=== PATIENT | female | born 1980 | race African-American/Black ===

== ENCOUNTER 2018-09-30 10:44 | Emergency (ER) | payer OTHER ==
[~2018-09-30] VITALS: Ht 162.6 cm; Wt 68.0 kg
--- NOTE | 2018-09-30 10:53 | NUR ---
38/F C/O LOWER ABD PAIN & VAGINA PAIN& X 2 DAY. BLEEDING PER VAGINA X LAST NIGHT. LMP 08/29/18. PATIENT STATES PAIN OF 10/10 AT THIS TIME.PATIENT POSITIONED FOR COMFORT; HOB ELEVATED; BEDRAILS UP X2; BED DOWN. ER MD MADE AWARE OF PT STATUS.
[2018-09-30 10:59] VITALS: BP 118/63
[2018-09-30] MEDS ORDERED: MORPHINE SULFATE 4 MG/ML SYR IVP ONE ×2 (11:20→14:00)
[2018-09-30 11:30] LABS: BASOPHILS % (AUTO) 0.5 % (0.0-2.0); EOSINOPHILS # (AUTO) 0.1 K/uL (0-0.4); EOSINOPHILS % (AUTO) 0.8 % (0.0-4.0); HEMATOCRIT 35.7 % (36-48); LYMPHOCYTES # (AUTO) 2.2 K/uL (2.5-16.5); LYMPHOCYTES % (AUTO) 29.1 % (20.5-51.1); MEAN CORPUSCULAR HEMOGLOBIN 32 pg (27-31); MEAN CORPUSCULAR HGB CONC 34 g/dL (33-37); MEAN CORPUSCULAR VOLUME 96.8 fL (80-94); MONOCYTES # (AUTO) 0.8 K/uL (0.8-1.0); MONOCYTES % (AUTO) 10.2 % (1.7-9.3); NEUTROPHILS # (AUTO) 4.4 K/uL (1.8-7.7); NEUTROPHILS % (AUTO) 59.4 % (42.2-75.2); PLATELET COUNT (AUTO) 203 K/uL (140-450); RED BLOOD CELL COUNT(AUTO) 3.69 MIL/uL (4.20-5.40); RED CELL DISTRIBUTION WIDTH 12.1 % (11.6-13.7); WHITE BLOOD COUNT (AUTO) 7.5 K/uL (4.8-10.8)
[2018-09-30] MEDS ORDERED: MORPHINE SULFATE 4 MG/ML SYR IM ONE (14:00)
[2018-09-30 14:39] VITALS: BP 110/61
--- NOTE | 2018-09-30 14:39 | NUR ---
Patient discharged with v/s stable. Written and verbal after care instructions given and explained. Patient alert, oriented and verbalized understanding of instructions. Ambulatory with steady gait. All questions addressed prior to discharge. ID band removed. Patient advised to follow up with PMD. Rx of MOTRIN & NORCO given. Patient educated on indication of medication including possible reaction and side effects. Opportunity to ask questions provided and answered.
== END 2018-09-30 14:39 | disposition home or self-care (01) ==
LOC: MED 10:44
DX: O03.9 Complete or unspecified spontaneous abortion without complication (principal)
CPT/HCPCS: 36415; 84702; 85025; 96374; 96376; 99283; J2270

== ENCOUNTER 2018-10-17 02:38 | Emergency (ER) | payer OTHER ==
[~2018-10-17] VITALS: Ht 162.6 cm; Wt 81.8 kg
[2018-10-17 02:40] VITALS: BP 120/62
--- NOTE | 2018-10-17 02:53 | NUR ---
PT AMBULATED TO BED #2
--- NOTE | 2018-10-17 02:53 | NUR ---
PT AMBULATED TO THE RESTROOM. PT TOLERATED WELL.
--- NOTE | 2018-10-17 02:54 | NUR ---
Patient ambulated to bed 4 with family. RN evaluating patient at bedside.
--- NOTE | 2018-10-17 02:54 | NUR ---
GAVE REPORT TO CORNELIUS ESPOSITO. PT VSS
--- NOTE | 2018-10-17 03:06 | NUR ---
PT BIB FAMILY C/O PELVIC PAIN POST MISCARRIAGE . PT REPORTS 10/10 SHARP PAIN IN LOWER ABD/PELVIC REGION THAT INCREASES WITH URINATION, BM, TOUCH, OR MOVEMENT. PT STATES THAT NORCO SHE HAD HELPED WITH PAIN, BUT HAS RAN OUT. LMP WAS BEGINNING OF AUG. DENIES VAG BLEEDING. PT DENIES N/V OR FEVER. PT HAD A RENAL U/S AND IMAGES OF PELVIC REGION TODAY. PT . VSS. ER TO SEE PT. MEDHX:KIDNEY STONES, ECTOPIC
--- NOTE | 2018-10-17 03:17 | NUR ---
Dr. Baez evaluating patient at bedside.
[2018-10-17] MEDS ORDERED: ONDANSETRON 4 MG/2 ML VIAL IVP ONE (03:25)
[2018-10-17] MEDS ORDERED: MORPHINE SULFATE 4 MG/ML SYR IVP ONE (03:25)
[2018-10-17 03:44] LABS: BASOPHILS % (AUTO) 0.2 % (0.0-2.0); EOSINOPHILS % (AUTO) 0.2 % (0.0-4.0); HEMOGLOBIN 10.8 g/dL (12.0-16.0); LYMPHOCYTES % (AUTO) 9.4 % (20.5-51.1); MEAN CORPUSCULAR HEMOGLOBIN 32 pg (27-31); MEAN CORPUSCULAR HGB CONC 33 g/dL (33-37); MEAN CORPUSCULAR VOLUME 97.5 fL (80-94); MONOCYTES # (AUTO) 0.8 K/uL (0.8-1.0); MONOCYTES % (AUTO) 7.6 % (1.7-9.3); NEUTROPHILS # (AUTO) 8.5 K/uL (1.8-7.7); PLATELET COUNT (AUTO) 310 K/uL (140-450); RED BLOOD CELL COUNT(AUTO) 3.38 MIL/uL (4.20-5.40); RED CELL DISTRIBUTION WIDTH 12.6 % (11.6-13.7); WHITE BLOOD COUNT (AUTO) 10.3 K/uL (4.8-10.8)
[2018-10-17 03:53] LABS: NEUTROPHILS % (AUTO) 82.6 % (42.2-75.2)
[2018-10-17 03:56] LABS: ANION GAP 12.3 (8-16); CARBON DIOXIDE 27.5 mmol/L (21-32); CREATININE 0.7 mg/dL (0.6-1.3); POTASSIUM 3.8 mmol/L (3.5-5.1)
--- NOTE | 2018-10-17 04:00 | NUR ---
PT RETURNED FROM CT AT THIS TIME.
[2018-10-17 04:02] LABS: ALBUMIN 4.1 g/dL (3.4-5.0); TOTAL BILIRUBIN 0.8 mg/dL (0.0-1.0)
--- NOTE | 2018-10-17 04:37 | NUR ---
PT RESTING IN BED, DAUGHTER AT BEDSIDE. PT REPORTS PAIN AT 3/10 AT THIS TIME. VSS. US [employer] COOK ON HER WAY FROM [place] AT THIS TIME. WILL CONTINUE TO MONITOR.
--- NOTE | 2018-10-17 05:08 | NUR ---
US tech at bedside for exam.
[2018-10-17 05:28] LABS: APPEARANCE,URINE HAZY (CLEAR); BILIRUBIN,URINE 1+ (NEGATIVE); BLOOD, URINE NEGATIVE (NEGATIVE); COLOR,URINE YELLOW (YELLOW); LEUKOCYTE ESTERASE ,URINE NEGATIVE (NEGATIVE); NITRITE, URINE NEGATIVE (NEGATIVE); UGLUCOSE NEGATIVE (NEGATIVE)
[2018-10-17 05:43] LABS: RBC,URINE 0-5 (RARE) /HPF (0-5)
[2018-10-17 06:38] VITALS: BP 97/53
--- NOTE | 2018-10-17 06:38 | NUR ---
Patient discharged with v/s stable. Written and verbal after care instructions given and explained. Patient alert, oriented and verbalized understanding of instructions. Ambulatory with steady gait. All questions addressed prior to discharge. ID band removed. Patient advised to follow up with PMD. Rx of motrin and norco given. Patient educated on indication of medication including possible reaction and side effects. Opportunity to ask questions provided and answered.
== END 2018-10-17 06:38 | disposition home or self-care (01) ==
LOC: MED 02:38
DX: N83.209 Unspecified ovarian cyst, unspecified side (principal); Z87.442 Personal history of urinary calculi
CPT/HCPCS: 36415; 74176; 76856; 80053; 81001; 81025; 83690; 84702; 85025; 87086; 96374; 96375; 99284; J2270; J2405; Q0092

== ENCOUNTER 2019-07-12 12:47 | Emergency (ER) | payer SELFPAY ==
[~2019-07-12] VITALS: Ht 162.6 cm; Wt 83.9 kg
[2019-07-12 13:15] VITALS: BP 110/64
--- NOTE | 2019-07-12 13:21 | NUR ---
PT BACK TO LOBBY TO WAIT FOR BED IN STABLE CONDITION.
--- NOTE | 2019-07-12 13:25 | NUR ---
PT ARRIVED TO ED C/O UTI SX AND COLD SX X 4 DAYS. NO PAIN. DENIES ANY FEVER,N,V,D, OR BLOOD IN URINE. PT STATES SHE HAS DYSURIA AND A BURNING SENSATION. LUNG SOUNDS CLEAR ALL THROUGHOUT. CONGESTED NOSE, AND PRODUCTIVE COUGH. VSS. NO RESP DSITRESS NOTED. NKA. NO PMH.
[2019-07-12 15:56] VITALS: BP 110/64
--- NOTE | 2019-07-12 15:56 | NUR ---
Patient discharged with v/s stable. Written and verbal after care instructions given and explained. Patient alert, oriented and verbalized understanding of instructions. Ambulatory with steady gait. All questions addressed prior to discharge. ID band removed. Patient advised to follow up with PMD. Rx of ROBITUSSIN, KEFLEX, IBUPROFEN given. Patient educated on indication of medication including possible reaction and side effects. Opportunity to ask questions provided and answered.
== END 2019-07-12 15:56 | disposition home or self-care (01) ==
LOC: MED 12:47
DX: J06.9 Acute upper respiratory infection, unspecified (principal); N39.0 Urinary tract infection, site not specified
CPT/HCPCS: 81002; 81025; 87086; 87186; 99283

== ENCOUNTER 2023-02-05 08:35 | Emergency (ER) | payer MEDICAID ==
[~2023-02-05] VITALS: Ht 162.6 cm; Wt 84.4 kg
[2023-02-05 08:38] VITALS: BP 120/52
--- NOTE | 2023-02-05 08:41 | NUR ---
PT AMBULATED TO BED 11
--- NOTE | 2023-02-05 08:59 | NUR ---
MD AT BEDSIDE ASSESSING PT
[2023-02-05] MEDS ORDERED: IBUPROFEN 400 MG TAB PO ONE (09:05)
--- NOTE | 2023-02-05 09:13 | NUR ---
X-Ray at bedside.
[2023-02-05] MEDS ORDERED: NAPR-1704 PO (09:37)
--- NOTE | 2023-02-05 09:39 | NUR ---
sling applied to L arm. + cms
--- NOTE | 2023-02-05 09:40 | NUR ---
MEDICATION REEVALUATION PT STATED THAT PAIN WAS NOW 3/10
[2023-02-05 09:46] VITALS: BP 121/53
== END 2023-02-05 09:46 | disposition home or self-care (01) ==
LOC: MED 08:35
DX: M25.522 Pain in left elbow (principal); F12.90 Cannabis use, unspecified, uncomplicated; Z79.899 Other long term (current) drug therapy
CPT/HCPCS: 73080; 99283

== ENCOUNTER 2023-05-01 21:40 | Emergency (ER) | payer SELFPAY ==
[~2023-05-01] VITALS: Ht 162.6 cm; Wt 81.6 kg
[~2023-05-01 21:40] MED LIST: NAPR-1704 PO
[2023-05-01 22:19] VITALS: BP 137/71; PULSE 87; RESP 18; TEMP 97.6; O2SAT 0
[2023-05-01 22:27] VITALS: BP 137/71; PULSE 87; RESP 18; TEMP 97.6; O2SAT 0
[2023-05-02] MEDS ORDERED: NAPR-54 PO (00:46)
== END 2023-05-02 00:55 | disposition home or self-care (01) ==
LOC: MED 21:40
DX: S43.402A Unspecified sprain of left shoulder joint, initial encounter (principal); Z98.890 Other specified postprocedural states; Z79.1 Long term (current) use of non-steroidal anti-inflammatories (NSAID); W20.8XXA Other cause of strike by thrown, projected or falling object, initial encounter; Y93.89 Activity, other specified; Y92.512 Supermarket, store or market as the place of occurrence of the external cause; Y99.8 Other external cause status
CPT/HCPCS: 73030; 99283